=== PATIENT | male | born 1975 | race Asian ===

== ENCOUNTER 2022-04-22 14:28 | Emergency (ER) | payer BC, OTHER ==
[2022-04-22] MEDS ORDERED: HYDROmorphone 1 MG/ML Syringe IVPUSH ONE (15:07)
[2022-04-22] MEDS ORDERED: Metoclopramide 10 MG/2 ML SDV IVPUSH ONE (15:08)
[2022-04-22] MEDS ORDERED: Sodium Chloride 0.9% 1,000 ML IV SCH (15:15)
[2022-04-22 15:32] LABS: ESTIMATED GFR 111 mL/min (>60)
[2022-04-22] MEDS ORDERED: LORazepam 2 MG/ML SDV IVPUSH ONE (16:26)
[2022-04-22] MEDS ORDERED: HYDROmorphone 0.5 MG/0.5 ML Syringe IVPUSH ONE (16:26)
[2022-04-22] MEDS ORDERED: Iopamidol 612 MG/ML 100 ML Bottle IVPUSH ONE (17:24)
[2022-04-22] MEDS ORDERED: Diatrizoate Meglumine/Diatrizoate Sodium 37% 120 ML Bottle PO ONE (17:24)
[2022-04-22] MEDS ORDERED: Sodium Chloride 0.9% 10 ML Syringe FLUSH ONE (17:24)
[2022-04-22] MEDS ORDERED: Ondansetron 4 MG/2 ML SDV IVPUSH ONE (17:57)
== END 2022-04-22 21:30 | disposition home or self-care (01) ==
LOC: JD.ED 14:28
DX: R10.33 Periumbilical pain (principal); K59.01 Slow transit constipation; Z91.048 Other nonmedicinal substance allergy status; Z79.899 Other long term (current) drug therapy; Z79.82 Long term (current) use of aspirin
CPT/HCPCS: 36415; 74018; 74177; 80053; 81001; 83690; 83735; 85025; 86140; 93005; 96361; 96374; 96375; 99284; J1170; J2060; J2765; J3490; J7030; Q9963; Q9967